=== PATIENT | female | born 1985 | race Caucasian/White ===

== ENCOUNTER 2023-01-11 00:03 | Emergency (ER) | payer SELFPAY ==
[~2023-01-11] VITALS: Ht 170.2 cm; Wt 104.3 kg
[~2023-01-11 00:03] MED LIST: albuterol inhaler
[2023-01-11 00:09] VITALS: BP 120/84
--- NOTE | 2023-01-11 00:20 | NUR ---
TO BED 7 FOLLOWING TRIAGE AFTER OBTAINING UA
--- NOTE | 2023-01-11 00:30 | NUR ---
37 Y/O F FROM HOME PRESENTS WITH ABDOMINAL SHARP PAIN 05/21 XMORNING WITH NV. PT DENIES ANY HEADACHES OR SOB. PT A&OX4, SKIN INTACT, RESPIRATIONS EVEN AND UNLABORED. AMBULATORY. PMH-PT DENIES ALLERGIES-PENICILLIN
[2023-01-11] MEDS ORDERED: KETOROLAC 30 MG/ML VIAL IVP ONE (00:40)
[2023-01-11] MEDS ORDERED: NACL 0.9% 1,000 ML IV ONE (00:40)
[2023-01-11] MEDS ORDERED: KETOROLAC 30 MG/ML VIAL ONE (00:41)
--- NOTE | 2023-01-11 00:53 | NUR ---
PT TO RR FOR WET MOUNT
[2023-01-11 00:58] LABS: APPEARANCE,URINE SL CLOUDY (CLEAR); BILIRUBIN,URINE NEGATIVE (NEGATIVE); BLOOD, URINE NEGATIVE (NEGATIVE); COLOR,URINE YELLOW (YELLOW); LEUKOCYTE ESTERASE ,URINE TRACE (NEGATIVE); NITRITE, URINE POSITIVE (NEGATIVE); UGLUCOSE NEGATIVE (NEGATIVE)
--- NOTE | 2023-01-11 00:58 | NUR ---
WETMOUNT COLLECTED AND GIVEN TO BETY FROM LAB
[2023-01-11 00:59] LABS: BASOPHILS # (AUTO) 0.1 K/uL (0.00-0.22); BASOPHILS % (AUTO) 0.6 % (0.0-2.0); EOSINOPHILS # (AUTO) 0.2 K/uL (0-0.4); EOSINOPHILS % (AUTO) 1.9 % (0.0-4.0); HEMATOCRIT 38.4 % (36-48); HEMOGLOBIN 13.3 g/dL (12.0-16.0); LYMPHOCYTES # (AUTO) 1.6 K/uL (2.5-16.5); LYMPHOCYTES % (AUTO) 15.7 % (20.5-51.1); MEAN CORPUSCULAR HEMOGLOBIN 33 pg (27-31); MEAN CORPUSCULAR HGB CONC 35 g/dL (33-37); MEAN CORPUSCULAR VOLUME 93.9 fL (80-94); MONOCYTES # (AUTO) 0.7 K/uL (0.8-1.0); MONOCYTES % (AUTO) 6.7 % (1.7-9.3); NEUTROPHILS # (AUTO) 7.6 K/uL (1.8-7.7); NEUTROPHILS % (AUTO) 75.1 % (42.2-75.2); PLATELET COUNT (AUTO) 221 K/uL (140-450); RED BLOOD CELL COUNT(AUTO) 4.09 MIL/uL (4.20-5.40); WHITE BLOOD COUNT (AUTO) 10.1 K/uL (4.8-10.8)
--- NOTE | 2023-01-11 01:04 | NUR ---
PT TAKEN TO CT VIA W/C
--- NOTE | 2023-01-11 01:12 | NUR ---
PT BACK FROM CT VIA W/C.
[2023-01-11 01:20] LABS: ALBUMIN 3.2 g/dL (3.4-5.0); ANION GAP 9.6 (8-16); CARBON DIOXIDE 29.2 mmol/L (21-32); CREATININE 0.9 mg/dL (0.6-1.3); POTASSIUM 3.8 mmol/L (3.5-5.1); TOTAL BILIRUBIN 0.6 mg/dL (0.0-1.0)
[2023-01-11] MEDS ORDERED: metroNIDAZOLE 500 MG/NS PREMIX 100 ML IV ONE (04:05)
[2023-01-11] MEDS ORDERED: LEVO750T75 PO (05:12)
--- NOTE | 2023-01-11 05:25 | NUR ---
Dr. Olmedo examining patient.
[2023-01-11 05:27] VITALS: BP 118/84
--- NOTE | 2023-01-11 05:27 | NUR ---
Patient discharged with v/s stable. Written and verbal after care instructions given and explained by Dr. Olmedo. Patient alert, oriented and verbalized understanding of instructions. Ambulatory with steady gait. All questions addressed prior to discharge. ID band removed. Patient advised to follow up with PMD. Rx of Levofloxacin given. Patient educated on indication of medication including possible reaction and side effects. Opportunity to ask questions provided and answered.
== END 2023-01-11 05:27 | disposition home or self-care (01) ==
LOC: MED 00:03
DX: N76.0 Acute vaginitis (principal); B96.89 Other specified bacterial agents as the cause of diseases classified elsewhere; R10.31 Right lower quadrant pain; J45.909 Unspecified asthma, uncomplicated; Z98.890 Other specified postprocedural states; Z79.899 Other long term (current) drug therapy; Z79.2 Long term (current) use of antibiotics; Z88.0 Allergy status to penicillin
CPT/HCPCS: 36415; 74176; 80053; 81001; 81025; 85025; 87040; 87086; 87210; 96361; 96365; 96375; 99285; J1885; J3490; J7030